=== PATIENT | female | born 1995 | race Caucasian/White ===

== ENCOUNTER 2016-03-05 09:06 | Inpatient (IN) | payer BC ==
[2016-04-04] VITALS (43 sets, daily range): BP systolic 99–127; BP diastolic 52–92; PULSE 68–92; TEMP 97.5–98.2
[2016-04-04] MEDS ORDERED: PRENATAL MVI (07:34)
[2016-04-04] MEDS ORDERED: PROFERRIN ES12 MG PO (07:35)
[2016-04-04 07:36] LABS: BASO # 0.1 (0.0-0.2); BASO % 0.5 % (0.0-2.0); EOS # 0.1 (0.0-0.7); GRAN # 6.8 (1.4-6.5); GRAN % 65.9 % (42.2-75.2); HEMATOCRIT 32.8 % (37.0-47.0); HEMOGLOBIN 11.3 g/dl (12.5-16.0); LYMPH # 2.3 (1.2-3.4); LYMPH % 22.3 % (20.0-51.0); MEAN CELL VOLUME 88 fl (80.0-100.0); MEAN CORPUSCULAR HEMOGLOBIN 30 pg (27.0-31.0); MEAN CORPUSCULAR HGB CONC 35 g/dl (33.0-37.0); MEAN PLATELET VOLUME 9.4 fl (7.4-10.4); MONO # 0.9 (0.1-0.6); MONO % 8.2 % (1.7-9.3); PLATELET COUNT 236 K/mm3 (130-400); RED BLOOD COUNT 3.71 M/mm3 (4.10-5.30); REDCELL DISTRIBUTION WIDTH-CV 12.3 % (11.5-14.5); WHITE BLOOD COUNT 10.3 K/mm3 (4.8-10.8)
[2016-04-05 03:00] VITALS: BP 114/60; PULSE 83; TEMP 97.6
[2016-04-05 08:10] VITALS: BP 89/48; PULSE 79; TEMP 98.2
[2016-04-05 13:00] VITALS: BP 116/70; PULSE 89; TEMP 98.3
[2016-04-05 15:21] VITALS: BP 110/55; PULSE 83; TEMP 98
[2016-04-05 21:00] VITALS: BP 111/71; PULSE 86; TEMP 97.8
[2016-04-06 03:35] VITALS: BP 118/60; PULSE 80; TEMP 98.1
[2016-04-06 07:10] VITALS: BP 107/71; PULSE 102; TEMP 97.5
== END 2016-04-06 14:40 | disposition home or self-care (01) | DRG 775 ==
LOC: EDSTATUS 03-30 06:21 → LDRO 03-30 09:06 → LDR 04-04 06:23 → OB 04-04 06:55 → LDR 04-04 06:55 → OB 04-04 18:00
PROVIDERS: Obstetrics & Gynecology
PROC: 10E0XZZ Delivery of Products of Conception, External Approach (ICD-10-PCS; principal; 2016-04-04)
PROC: 0KQM0ZZ Repair Perineum Muscle, Open Approach (ICD-10-PCS; 2016-04-04)
PROC: 3E033VJ Introduction of Other Hormone into Peripheral Vein, Percutaneous Approach (ICD-10-PCS; 2016-04-04)
PROC: 0UQMXZZ Repair Vulva, External Approach (ICD-10-PCS; 2016-04-04)
DX: O48.0 Post-term pregnancy (principal); O24.420 Gestational diabetes mellitus in childbirth, diet controlled; O70.1 Second degree perineal laceration during delivery; O77.0 Labor and delivery complicated by meconium in amniotic fluid; O70.0 First degree perineal laceration during delivery; O99.824 Streptococcus B carrier state complicating childbirth; Z3A.40 40 weeks gestation of pregnancy; Z37.0 Single live birth
CPT/HCPCS: J0595; J2540; J2590; J7120